=== PATIENT | female | born 1965 | race Caucasian/White ===

== ENCOUNTER → 2018-09-23 | Outpatient (CLI) | payer BC ==
[2018-09-23] MEDS: IOHEXOL 300 MG/ML 75 ML VIAL. IV ONE (13:11)
[2018-09-23 13:26] LABS: BASO % 1 % (0-3); EOS # 0.1 x10^3/uL (0.0-0.7); EOS % 1 % (0-3); HEMATOCRIT 32.2 % (36.0-47.0); HEMOGLOBIN 10.7 g/dL (12.0-15.5); LYMPH # 1.7 x10^3/uL (1.0-4.8); LYMPH % 21 % (24-48); MEAN CORPUSCULAR HEMOGLOBIN 29 pg (25-35); MEAN CORPUSCULAR HGB CONC 33 g/dL (31-37); MEAN CORPUSCULAR VOLUME 86 fL (79-100); MONO # 0.5 x10^3/uL (0.0-1.1); MONO % 7 % (0-9); NEUT # 5.6 x10^3uL (1.8-7.7); NEUT % 71 % (31-73); PLATELET COUNT 271 x10^3/uL (140-400); RED BLOOD COUNT 3.74 x10^6/uL (3.50-5.40); RED CELL DISTRIBUTION WIDTH 14.9 % (11.5-14.5)
[2018-09-23 13:30] LABS: CALCIUM 8.6 mg/dL (8.5-10.1); CREATININE 0.7 mg/dL (0.6-1.0); GFR 88.2
--- NOTE | 2018-09-23 13:40 | RAD ---
CT ABD PELV W/ IV CONTRST ONLY Indication: Unresolved UTI, pain lower pelvis and abdomen, nausea, OMNI 300 75ml Exposure: One or more of the following individualized dose reduction techniques were utilized for this examination: 1. Automated exposure control 2. Adjustment of the mA and/or kV according to patient size 3. Use of iterative reconstruction technique. Comparison: None are available. Contrast: Intravenous contrast was given. No oral contrast per request. FINDINGS: Lower thorax: Minimal atelectasis in the lung bases. Small partially visualized nodule in the right lung base on the uppermost slice, image #1, measures about 2 mm. Liver: Unremarkable Spleen: Unremarkable Pancreas: Unremarkable Adrenals: No evidence of mass. Kidneys: Small hypodense lesion lower pole left kidney measures 1 cm most likely a cyst. Urinary tracts: No hydronephrosis. Gallbladder: Contracted, no calcified stone Lymph nodes: No significant enlargement Vessels: Aorta is nonaneurysmal. GI tract: No evidence of acute colitis. No evidence of bowel obstruction. Appendix is not clearly visualized. Reproductive organs: Uterus mildly enlarged with heterogeneous areas of low-density. These could represent sequela state or fibroids. Low-density lesion in the right adnexa measures 2 cm, probably an ovarian cyst. Urinary bladder: Contains a few small anti-dependent air bubbles, correlate for recent instrumentation. Peritoneum: No evidence of pneumoperitoneum. No free fluid. Abdominal wall:Unremarkable Spine: Mild degenerative spondylosis. Mild anterior subluxation of L4 and L5. Bones: No destructive process identified. External Soft Tissue: No acute findings. IMPRESSION: 1. Several small air bubbles within the urinary bladder, correlate for recent instrumentation. If not, could represent a gas-forming organism. Note there is no significant urinary bladder wall thickening. 2. Uterine heterogeneity, could reflect state or fibroids. Small right ovarian cyst. Pelvic ultrasound could further evaluate on a nonemergent basis. 3. Hypodense lesion left kidney, most likely a cyst. Electronically signed by: Paul Roman MD (09/23/2018 1:37 PM) [id number]
== END | disposition home or self-care (01) ==
LOC: CT 12:29
PROVIDERS: ATTEND Family Medicine
DX: S33.140A Subluxation of L4/L5 lumbar vertebra, initial encounter (principal); N28.89 Other specified disorders of kidney and ureter; N83.291 Other ovarian cyst, right side; M47.896 Other spondylosis, lumbar region; N85.2 Hypertrophy of uterus; J98.11 Atelectasis; X58.XXXA Exposure to other specified factors, initial encounter; Y93.89 Activity, other specified; Y92.89 Other specified places as the place of occurrence of the external cause; Y99.8 Other external cause status
CPT/HCPCS: 36415; 74177; 80048; 85025; Q9967

== ENCOUNTER → 2021-12-03 | Outpatient (CLI) | payer BC ==
--- NOTE | 2021-12-03 08:13 | RAD ---
EXAM: Abdomen sonogram. HISTORY: Elevated liver function laboratory values. TECHNIQUE: Sonographic imaging of the abdomen was performed. COMPARISON: CT dated 09/23/2018. FINDINGS: The liver is normal in size. There is hepatic steatosis. The left hepatic lobe is not well seen due to body habitus and bowel gas. The common bile duct is normal in caliber. There is suspected debris within the gallbladder. There is no convincing cholelithiasis or cholecystitis. There is left renal cortical lobulation. This is likely developmental or due to scarring. There is no suspicious r enal lesion or hydronephrosis. The spleen is normal in size. The pancreas is unremarkable. The aorta and inferior vena cava are partially obscured due to bowel gas. IMPRESSION: 1. Hepatic steatosis. 2. Suspected debris within the gallbladder. There is no cholecystitis or cholelithiasis. 3. Left renal cortical lobulation. There is a small cyst within the left kidney on a CT performed which is not clearly seen on this exam. Electronically signed by: Bridget Acevedo MD (12/03/2021 8:11 AM) [id number]
--- NOTE | 2021-12-03 15:58 | RAD ---
US THYROID History: Reason: THYROTOXICOSIS, HYPERTHYROIDISM / Spl. Instructions: / History: Comparison: None. Technique: Multiple grayscale and color Doppler images of the thyroid gland were obtained. Findings: Right thyroid lobe: 4.1 x 1.1 x 1.5 cm. Heterogeneous echotexture. Increased vascularity. Left thyroid lobe: 3.6 x 0.9 x 1.1 cm. Heterogeneous echotexture. Increased vascularity. Isthmus: 0.4 cm. -Mixed cystic and solid right mid thyroid nodule measures 0.9 x 0.8 x 0.7 cm. TI-RADS 3. -Solid hypoechoic right inferior thyroid nodule measures 0.0 x 0.8 x 0.7 cm. TI-RADS 4. -Solid isoechoic right isthmus nodule measures 0.9 x 0.6 x 0.6 cm. TI-RADS 3. ACR Thyroid Imaging, Reporting And Data System (TI-RADS): White Paper Of The ACR TI-RADS Committee. J ournal of the [employer], volume 14, issue 5, pages 587-595 (February 2017). IMPRESSION: 1. Diffusely heterogeneous thyroid with increased vascularity compatible with known thyroiditis. 2. TI-RADS 3 and TI-RADS 4 thyroid nodules. Recommend one-year ultrasound follow-up. Electronically signed by: Franck Baeza DO (12/03/2021 3:56 PM) [facility]
== END ==
LOC: US 07:23
PROVIDERS: ATTEND Family Medicine
DX: E04.2 Nontoxic multinodular goiter (principal); E05.90 Thyrotoxicosis, unspecified without thyrotoxic crisis or storm
CPT/HCPCS: 76536; 76700